=== PATIENT | male | born 1940 | race Caucasian/White ===

== ENCOUNTER 2016-12-01 22:20 | Emergency (ER) | payer MEDICARE, OTHER ==
[~2016-12-01] VITALS: Ht 172.7 cm; Wt 63.6 kg
[2016-12-01] MEDS ORDERED: FINA5TAB41 PO (22:43)
[2016-12-01] MEDS ORDERED: OXYB5 PO (22:43)
[2016-12-01] MEDS ORDERED: TOLT2TAB2 PO (22:43)
[2016-12-01] MEDS ORDERED: DSS100 PO (22:43)
[2016-12-01] MEDS ORDERED: TRAZ-147 PO (22:43)
[2016-12-01] MEDS ORDERED: TAMS0.4C32 PO (22:43)
[2016-12-01] MEDS ORDERED: METH1T PO (22:43)
[2016-12-01 23:24] LABS: BASOPHILS % (AUTO) 0.5 % (0.0-2.0); EOSINOPHILS % (AUTO) 1.8 % (1.0-6.0); HEMATOCRIT 43.9 % (41-53); HEMOGLOBIN 14.2 g/dL (13.5-17.5); LYMPHOCYTES # (AUTO) 0.7 K/uL (1.0-4.8); LYMPHOCYTES % (AUTO) 8.1 % (22.0-44.0); MEAN CORPUSCULAR HEMOGLOBIN 28.9 pg (26.0-34.0); MEAN CORPUSCULAR HGB CONC 32.4 G/dL (31.0-37.0); MEAN CORPUSCULAR VOLUME 89 fL (80-100); MONOCYTES # (AUTO) 0.5 K/uL (0.1-1.0); MONOCYTES % (AUTO) 6.2 % (2.0-9.0); NEUTROPHILS % (AUTO) 83.4 % (40.0-70.0); PLATELET COUNT (AUTO) 287 K/uL (150-450); RED BLOOD CELL COUNT(AUTO) 4.92 MIL/uL (4.50-5.90); RED CELL DISTRIBUTION WIDTH 13.9 % (11.5-14.5); WHITE BLOOD COUNT (AUTO) 8.4 K/uL (4.5-11.0)
[2016-12-01 23:32] LABS: CALCIUM, TOTAL 8.6 mg/dL (8.8-10.5); CREATININE 1.25 mg/dL (0.60-1.30)
[2016-12-01 23:42] LABS: ALBUMIN 3.2 g/dL (3.4-5.0); BILIRUBIN,TOTAL 0.2 mg/dL (0.1-1.0); TOTAL PROTEIN, SERUM 7.4 g/dL (6.4-8.2)
[2016-12-02 01:51] VITALS: BP 119/62
== END 2016-12-02 01:54 | disposition home or self-care (01) ==
LOC: EMS 22:22
DX: J40 Bronchitis, not specified as acute or chronic (principal); R11.2 Nausea with vomiting, unspecified
CPT/HCPCS: 71020; 93005; 99285

== ENCOUNTER 2017-08-05 09:53 | Emergency (ER) | payer MEDICARE, OTHER ==
[~2017-08-05] VITALS: Ht 162.6 cm; Wt 66.3 kg
[~2017-08-05 09:53] MED LIST: BETH25TA PO; DSS100 PO; FINA5TAB41 PO; METH1T PO; MUPI1OIN5 NASAL; TAMS0.4C32 PO; TOLT2TAB2 PO; TRAZ-147 PO
[2017-08-05 12:31] LABS: BASOPHILS % (AUTO) 0.1 % (0.0-2.0); EOSINOPHILS % (AUTO) 1.2 % (1.0-6.0); HEMOGLOBIN 14.4 g/dL (13.5-17.5); LYMPHOCYTES # (AUTO) 1.4 K/uL (1.0-4.8); MEAN CORPUSCULAR HEMOGLOBIN 30.1 pg (26.0-34.0); MEAN CORPUSCULAR HGB CONC 34.2 G/dL (31.0-37.0); MEAN CORPUSCULAR VOLUME 88 fL (80-100); MONOCYTES # (AUTO) 0.7 K/uL (0.1-1.0); NEUTROPHILS # (AUTO) 6.2 K/uL (1.8-7.7); NEUTROPHILS % (AUTO) 73.7 % (40.0-70.0); PLATELET COUNT (AUTO) 323 K/uL (150-450); RED BLOOD CELL COUNT(AUTO) 4.77 MIL/uL (4.50-5.90); RED CELL DISTRIBUTION WIDTH 14.5 % (11.5-14.5); WHITE BLOOD COUNT (AUTO) 8.4 K/uL (4.5-11.0)
[2017-08-05 12:41] LABS: CALCIUM, TOTAL 8.9 mg/dL (8.8-10.5); CREATININE 1.44 mg/dL (0.60-1.30); POTASSIUM 3.6 mmol/L (3.5-5.1)
[2017-08-05 12:48] LABS: LACTIC ACID 1.7 mmol/L (0.4-2.0)
[2017-08-05 12:56] LABS: ALBUMIN 3.3 g/dL (3.4-5.0); BILIRUBIN,TOTAL 0.3 mg/dL (0.1-1.0); TOTAL PROTEIN, SERUM 8.1 g/dL (6.4-8.2)
[2017-08-05 13:43] LABS: APPEARANCE,URINE TURBID (CLEAR); GLUCOSE, URINE (UA) NEGATIVE (NEGATIVE); KETONES,URINE NEGATIVE (NEGATIVE); OCCULT BLOOD,URINE LARGE (NEGATIVE); PROTEIN,URINE SEE CONFIRM (NEGATIVE)
[2017-08-05 13:44] LABS: LEUKOCYTE ESTERASE ,URINE LARGE (NEGATIVE)
[2017-08-05 13:49] LABS: SULFOSALICYLIC ACID,URINE 1+ (Negative)
[2017-08-05 13:51] LABS: SQUAMOUS EPITHELIAL CELL,UR Few /LPF (None Seen); WBC,URINE >100 /HPF (0-5)
[2017-08-05] MEDS ORDERED: CefTRIAXone 1 GM/DEXTROSE 50 ML IV ONE (14:00)
[2017-08-05] MEDS ORDERED: SODIUM CHLORIDE 0.9% 500 ML IV ONE (14:00)
[2017-08-05 15:51] VITALS: BP 139/87
== END 2017-08-05 15:54 | disposition home or self-care (01) ==
LOC: EMS 09:54
DX: N39.0 Urinary tract infection, site not specified (principal); N28.9 Disorder of kidney and ureter, unspecified
CPT/HCPCS: 36415; 70450; 80053; 81001; 83605; 85025; 87077; 87086; 87186; 96365; 99285; J0696; J7040

== ENCOUNTER 2017-08-25 23:32 | Emergency (ER) | payer MEDICARE, OTHER ==
[~2017-08-25] VITALS: Ht 172.7 cm; Wt 137.0 kg
[2017-08-26 00:54] LABS: BASOPHILS % (AUTO) 0.3 % (0.0-2.0); EOSINOPHILS % (AUTO) 0.8 % (1.0-6.0); HEMATOCRIT 39.1 % (41-53); HEMOGLOBIN 13.3 g/dL (13.5-17.5); LYMPHOCYTES # (AUTO) 0.8 K/uL (1.0-4.8); LYMPHOCYTES % (AUTO) 9.5 % (22.0-44.0); MEAN CORPUSCULAR HEMOGLOBIN 29.8 pg (26.0-34.0); MEAN CORPUSCULAR HGB CONC 33.9 G/dL (31.0-37.0); MEAN CORPUSCULAR VOLUME 88 fL (80-100); MONOCYTES # (AUTO) 0.5 K/uL (0.1-1.0); MONOCYTES % (AUTO) 5.8 % (2.0-9.0); NEUTROPHILS # (AUTO) 6.8 K/uL (1.8-7.7); NEUTROPHILS % (AUTO) 83.6 % (40.0-70.0); PLATELET COUNT (AUTO) 348 K/uL (150-450); RED BLOOD CELL COUNT(AUTO) 4.46 MIL/uL (4.50-5.90); RED CELL DISTRIBUTION WIDTH 14.2 % (11.5-14.5); WHITE BLOOD COUNT (AUTO) 8.1 K/uL (4.5-11.0)
[2017-08-26 01:03] LABS: CALCIUM, TOTAL 8.9 mg/dL (8.8-10.5); CREATININE 1.25 mg/dL (0.60-1.30); POTASSIUM 3.5 mmol/L (3.5-5.1)
[2017-08-26 01:07] LABS: PROTHROMBIN TIME 10.2 SEC (9.4-11.6)
[2017-08-26 01:28] LABS: ALBUMIN 3.2 g/dL (3.4-5.0); BILIRUBIN,TOTAL 0.2 mg/dL (0.1-1.0); CREATINE KINASE MB 14.5 ng/mL (0-5); TOTAL PROTEIN, SERUM 7.9 g/dL (6.4-8.2)
[2017-08-26] MEDS ORDERED: ASPIRIN 325 MG TABLET PO ONE (02:00)
[2017-08-26] MEDS ORDERED: ONDANSETRON HCL 4 MG/2 ML VIAL IVP PRN (02:15)
[2017-08-26] MEDS ORDERED: ACETAMINOPHEN 325 MG TABLET PO PRN (02:15)
[2017-08-26] MEDS ORDERED: 0.9% SODIUM CHLORIDE 10 ML SYRINGE IVP PRN (02:15)
[2017-08-26] MEDS ORDERED: HEPARIN SODIUM 25000 UNITS/D5W 250 ML IV PRN (02:56)
[2017-08-26] MEDS ORDERED: HEPARIN SODIUM,PORCINE 5,000 UNITS/ML VIAL IVP PRN ×2 (03:00)
[2017-08-26] MEDS ORDERED: HEPARIN SODIUM,PORCINE 5,000 UNITS/ML VIAL IVP ONE ×2 (03:00)
[2017-08-26 03:42] LABS: BASOPHILS # (AUTO) 0.03 K/uL (0.00-0.20); BASOPHILS % (AUTO) 0.4 % (0.0-2.0); EOSINOPHILS # (AUTO) 0.14 K/uL (0.00-0.70); EOSINOPHILS % (AUTO) 1.89 % (1.0-6.0); HEMATOCRIT 38.5 % (41-53); HEMOGLOBIN 12.7 g/dL (13.5-17.5); LYMPHOCYTES # (AUTO) 1.5 K/uL (1.0-4.8); LYMPHOCYTES % (AUTO) 19.4 % (22.0-44.0); MEAN CORPUSCULAR HEMOGLOBIN 29.5 pg (26.0-34.0); MEAN CORPUSCULAR VOLUME 89 fL (80-100); MONOCYTES # (AUTO) 0.5 K/uL (0.1-1.0); MONOCYTES % (AUTO) 6.3 % (2.0-9.0); NEUTROPHILS # (AUTO) 5.5 K/uL (1.8-7.7); PLATELET COUNT (AUTO) 321 K/uL (150-450); RED BLOOD CELL COUNT(AUTO) 4.31 MIL/uL (4.50-5.90); RED CELL DISTRIBUTION WIDTH 14.1 % (11.5-14.5); WHITE BLOOD COUNT (AUTO) 7.6 K/uL (4.5-11.0)
[2017-08-26] MEDS ORDERED: METOPROLOL SUCCINATE 25 MG ER TABLET PO ONE (04:30)
[2017-08-26] MEDS ORDERED: ATORVASTATIN CALCIUM 40 MG TABLET PO ONE (04:30)
[2017-08-26] MEDS ORDERED: NITROGLYCERIN 2% (1 GM=INCH) PACKET TP SCH (08:30)
[2017-08-26] MEDS: METOPROLOL TARTRATE 25 MG TABLET PO SCH ×2 (08:30→12:00)
[2017-08-26] MEDS ORDERED: POTASSIUM CHLORIDE 20 MEQ ER TABLET PO ONE (08:45)
[2017-08-26] MEDS ORDERED: ATORVASTATIN CALCIUM 40 MG TABLET PO SCH (09:00)
[2017-08-26] MEDS ORDERED: ASPIRIN 81 MG EC TABLET PO SCH (09:00)
[2017-08-26 12:00] VITALS: BP 103/78
== END 2017-08-26 12:11 | disposition other institution (70) ==
LOC: EMS 23:34
DX: I21.4 Non-ST elevation (NSTEMI) myocardial infarction (principal); Z79.899 Other long term (current) drug therapy
CPT/HCPCS: 36415; 71010; 80053; 82550; 82553; 83880; 84484; 85025; 85610; 85730; 93005 ×2; 96365; 96366; 99291; J1644 ×2

== ENCOUNTER 2018-03-03 05:58 | Inpatient (IN) | payer MEDICARE, OTHER ==
[~2018-03-03 05:58] MED LIST changes: +ATOR40TA28 PO; +BETH25 PO; -BETH25TA PO; +CARV6 PO; +CIP250 PO; +FAMO20 PO; -METH1T PO; -MUPI1OIN5 NASAL; +NYST30CR9 TP; +TICA90TA PO; -TRAZ-147 PO; +TRAZ-220 PO
[2018-03-03 07:30] VITALS: BP 141/77
[2018-03-03 11:42] VITALS: BP 126/81
[2018-03-03] MEDS: TOLTERODINE TARTRATE 2 MG TABLET PO SCH ×2 (14:45→21:00)
[2018-03-03] MEDS ORDERED: ACETAMINOPHEN 325 MG TABLET PO PRN (14:45)
[2018-03-03] MEDS ORDERED: ONDANSETRON HCL 4 MG/2 ML VIAL IVP PRN (14:45)
[2018-03-03 15:22] LABS: BASOPHILS % (AUTO) 0.7 % (0.0-2.0); EOSINOPHILS % (AUTO) 5.7 % (1.0-6.0); HEMATOCRIT 32.7 % (41-53); HEMOGLOBIN 10.8 g/dL (13.5-17.5); MEAN CORPUSCULAR HEMOGLOBIN 25.6 pg (26.0-34.0); MEAN CORPUSCULAR HGB CONC 33.1 G/dL (31.0-37.0); MEAN CORPUSCULAR VOLUME 78 fL (80-100); MONOCYTES # (AUTO) 0.6 K/uL (0.1-1.0); MONOCYTES % (AUTO) 9.1 % (2.0-9.0); NEUTROPHILS # (AUTO) 3.8 K/uL (1.8-7.7); NEUTROPHILS % (AUTO) 55.5 % (40.0-70.0); PLATELET COUNT (AUTO) 356 K/uL (150-450); RED BLOOD CELL COUNT(AUTO) 4.22 MIL/uL (4.50-5.90); RED CELL DISTRIBUTION WIDTH 16.3 % (11.5-14.5)
[2018-03-03 15:33] LABS: PROTHROMBIN TIME 10.1 SEC (9.4-11.6)
[2018-03-03] MEDS: TICAGRELOR 90 MG TABLET PO SCH ×2 (15:37→20:10)
[2018-03-03] MEDS: PANTOPRAZOLE SODIUM 40 MG/VIAL IVP SCH (15:37)
[2018-03-03] MEDS: NYSTATIN 30 GM CREAM TP SCH ×2 (15:38→20:10)
[2018-03-03] MEDS: TAMSULOSIN HCL 0.4 MG CAPSULE PO SCH ×2 (15:38→20:10)
[2018-03-03] MEDS: FINASTERIDE 5 MG TABLET PO SCH (15:38)
[2018-03-03] MEDS: DOCUSATE SODIUM 100 MG CAPSULE PO SCH (15:38)
[2018-03-03] MEDS: CARVEDILOL 6.25 MG TABLET PO SCH ×2 (15:38→20:10)
[2018-03-03] MEDS: HEPARIN SODIUM,PORCINE 5,000 UNITS/ML VIAL SQ SCH ×2 (15:39→23:22)
[2018-03-03] MEDS: BETHANECHOL CHLORIDE 25 MG TABLET PO SCH ×2 (15:39→20:10)
[2018-03-03 15:42] LABS: ALANINE AMINOTRANSFERASE 20 U/L (12-78); ALKALINE PHOSPHATASE 164 U/L (46-116); ANION GAP 4 mmol/L (8-16); ASPARTATE AMINOTRANSFERASE 17 U/L (15-37); BILIRUBIN,TOTAL 0.2 mg/dL (0.1-1.0); CALCIUM, TOTAL 8.5 mg/dL (8.8-10.5); CARBON DIOXIDE 31 mmol/L (22-29); CHLORIDE 98 mmol/L (98-107); CREATININE 0.97 mg/dL (0.60-1.30); GLUCOSE,RANDOM 90 mg/dL (70-110); SODIUM SERUM 133 mmol/L (136-145); TOTAL PROTEIN, SERUM 7.9 g/dL (6.4-8.2); UREA NITROGEN, BLOOD 27 mg/dL (7-18)
[2018-03-03 15:44] LABS: GLOMERULAR FILTR. RATE CALC > 60 mL/min (>60)
[2018-03-03 16:27] LABS: APPEARANCE,URINE CLOUDY (CLEAR); BILIRUBIN,URINE NEGATIVE (NEGATIVE); GLUCOSE, URINE (UA) NEGATIVE (NEGATIVE); KETONES,URINE NEGATIVE (NEGATIVE); LEUKOCYTE ESTERASE ,URINE LARGE (NEGATIVE); NITRATE,URINE POSITIVE (NEGATIVE); OCCULT BLOOD,URINE TRACE (NEGATIVE); PROTEIN,URINE NEGATIVE (NEGATIVE); UROBILINOGEN,URINE 0.2 mg/dL (<=1.0)
[2018-03-03 16:46] LABS: WBC,URINE >100 /HPF (0-5)
[2018-03-03 16:47] LABS: BACTERIA,URINE Many /HPF (None Seen)
[2018-03-03 16:48] LABS: SQUAMOUS EPITHELIAL CELL,UR Few /LPF (None Seen)
[2018-03-03] MEDS ORDERED: SODIUM CHLORIDE 0.9% 500 ML IV ONE (19:41)
[2018-03-03] MEDS: TraZODone HCL 100 MG TABLET PO SCH (20:10)
[2018-03-03] MEDS: CefoTEtan DISOD 2 GM/DEXTROSE 50 ML IV SCH (20:10)
[2018-03-03] MEDS: ATORVASTATIN CALCIUM 40 MG TABLET PO SCH (20:12)
[2018-03-03 20:44] VITALS: BP 122/66
[2018-03-04 00:11] VITALS: BP 81/56
[2018-03-04] MEDS ORDERED: SODIUM CHLORIDE 0.9% 1,000 ML IV ONE (00:30)
[2018-03-04 04:12] VITALS: BP 92/54
[2018-03-04 06:30] LABS: BASOPHILS % (AUTO) 0.4 % (0.0-2.0); EOSINOPHILS % (AUTO) 1.5 % (1.0-6.0); HEMATOCRIT 30.7 % (41-53); HEMOGLOBIN 10.5 g/dL (13.5-17.5); LYMPHOCYTES # (AUTO) 1.1 K/uL (1.0-4.8); LYMPHOCYTES % (AUTO) 11.9 % (22.0-44.0); MEAN CORPUSCULAR HEMOGLOBIN 26.1 pg (26.0-34.0); MEAN CORPUSCULAR HGB CONC 34.1 G/dL (31.0-37.0); MEAN CORPUSCULAR VOLUME 77 fL (80-100); MONOCYTES # (AUTO) 0.5 K/uL (0.1-1.0); NEUTROPHILS # (AUTO) 7.8 K/uL (1.8-7.7); NEUTROPHILS % (AUTO) 81.2 % (40.0-70.0); PLATELET COUNT (AUTO) 340 K/uL (150-450); RED BLOOD CELL COUNT(AUTO) 4.01 MIL/uL (4.50-5.90)
[2018-03-04 06:42] LABS: PROTHROMBIN TIME 10.3 SEC (9.4-11.6)
[2018-03-04 07:07] VITALS: BP 91/52
[2018-03-04 07:18] LABS: ALBUMIN 2.8 g/dL (3.4-5.0); BILIRUBIN,TOTAL 0.3 mg/dL (0.1-1.0); CALCIUM, TOTAL 8.3 mg/dL (8.8-10.5); CREATININE 1.41 mg/dL (0.60-1.30); MAGNESIUM 1.8 mg/dL (1.80-2.40); POTASSIUM 4.5 mmol/L (3.5-5.1); TOTAL PROTEIN, SERUM 7.4 g/dL (6.4-8.2)
[2018-03-04] MEDS: BETHANECHOL CHLORIDE 25 MG TABLET PO SCH ×3 (07:55→19:51)
[2018-03-04] MEDS: TICAGRELOR 90 MG TABLET PO SCH ×2 (07:55→19:51)
[2018-03-04] MEDS: FINASTERIDE 5 MG TABLET PO SCH (07:55)
[2018-03-04] MEDS: DOCUSATE SODIUM 100 MG CAPSULE PO SCH (07:55)
[2018-03-04] MEDS: PANTOPRAZOLE SODIUM 40 MG/VIAL IVP SCH (07:55)
[2018-03-04] MEDS: TAMSULOSIN HCL 0.4 MG CAPSULE PO SCH ×2 (07:55→19:51)
[2018-03-04] MEDS: HEPARIN SODIUM,PORCINE 5,000 UNITS/ML VIAL SQ SCH ×2 (07:56→16:15)
[2018-03-04] MEDS: NYSTATIN 30 GM CREAM TP SCH ×2 (07:56→19:51)
[2018-03-04 08:44] LABS: BAND NEUTROPHILS % (MANUAL) 2 % (0-5); EOSINOPHILS % (MANUAL) 2 % (1-6); LYMPHOCYTES % (MANUAL) 16 % (22-44); MONOCYTES % (MANUAL) 7 % (2-9); SEGMENTED NEUTROPHILS % 73 % (40-70)
[2018-03-04 11:15] VITALS: BP 102/62
[2018-03-04] MEDS: TOLTERODINE TARTRATE 2 MG TABLET PO SCH ×2 (13:15→19:51)
[2018-03-04 15:11] VITALS: BP 110/68
[2018-03-04 19:15] VITALS: BP 144/67
[2018-03-04] MEDS ORDERED: SODIUM CHLORIDE 0.9% 500 ML IV ONE (19:46)
[2018-03-04] MEDS: TraZODone HCL 100 MG TABLET PO SCH (19:51)
[2018-03-04] MEDS: ATORVASTATIN CALCIUM 40 MG TABLET PO SCH (19:51)
[2018-03-04] MEDS: CefoTEtan DISOD 2 GM/DEXTROSE 50 ML IV SCH (19:51)
[2018-03-05 00:15] VITALS: BP 134/88
[2018-03-05 03:30] VITALS: BP 132/84
[2018-03-05 06:32] LABS: BASOPHILS % (AUTO) 0.8 % (0.0-2.0); EOSINOPHILS % (AUTO) 4.8 % (1.0-6.0); HEMATOCRIT 32.1 % (41-53); HEMOGLOBIN 10.6 g/dL (13.5-17.5); LYMPHOCYTES # (AUTO) 1.3 K/uL (1.0-4.8); LYMPHOCYTES % (AUTO) 19.4 % (22.0-44.0); MEAN CORPUSCULAR HEMOGLOBIN 25.5 pg (26.0-34.0); MEAN CORPUSCULAR HGB CONC 33.1 G/dL (31.0-37.0); MEAN CORPUSCULAR VOLUME 77 fL (80-100); MONOCYTES # (AUTO) 0.4 K/uL (0.1-1.0); MONOCYTES % (AUTO) 6.6 % (2.0-9.0); NEUTROPHILS # (AUTO) 4.5 K/uL (1.8-7.7); NEUTROPHILS % (AUTO) 68.4 % (40.0-70.0); PLATELET COUNT (AUTO) 339 K/uL (150-450); RED BLOOD CELL COUNT(AUTO) 4.17 MIL/uL (4.50-5.90); RED CELL DISTRIBUTION WIDTH 16.4 % (11.5-14.5)
[2018-03-05 06:47] LABS: CALCIUM, TOTAL 8.3 mg/dL (8.8-10.5); CREATININE 1.31 mg/dL (0.60-1.30); POTASSIUM 3.8 mmol/L (3.5-5.1)
[2018-03-05 07:08] VITALS: BP 126/67
[2018-03-05] MEDS: HEPARIN SODIUM,PORCINE 5,000 UNITS/ML VIAL SQ SCH ×4 (08:14→23:32)
[2018-03-05] MEDS: FINASTERIDE 5 MG TABLET PO SCH (08:14)
[2018-03-05] MEDS: TAMSULOSIN HCL 0.4 MG CAPSULE PO SCH ×2 (08:14→20:04)
[2018-03-05] MEDS: TICAGRELOR 90 MG TABLET PO SCH ×2 (08:14→20:04)
[2018-03-05] MEDS: BETHANECHOL CHLORIDE 25 MG TABLET PO SCH ×3 (08:14→20:04)
[2018-03-05] MEDS: PANTOPRAZOLE SODIUM 40 MG/VIAL IVP SCH (08:14)
[2018-03-05] MEDS: DOCUSATE SODIUM 100 MG CAPSULE PO SCH (08:14)
[2018-03-05] MEDS: TOLTERODINE TARTRATE 2 MG TABLET PO SCH ×2 (08:14→20:04)
[2018-03-05] MEDS: NYSTATIN 30 GM CREAM TP SCH ×2 (08:15→20:05)
[2018-03-05 11:46] VITALS: BP 137/85
[2018-03-05 16:00] VITALS: BP 115/52
[2018-03-05 19:00] VITALS: BP 119/62
[2018-03-05] MEDS: DEXTROSE 5% IV SCH (20:04)
[2018-03-05] MEDS: CEFUROXIME SODIUM IV SCH (20:04)
[2018-03-05] MEDS: TraZODone HCL 100 MG TABLET PO SCH (20:04)
[2018-03-05] MEDS: ATORVASTATIN CALCIUM 40 MG TABLET PO SCH (20:04)
[2018-03-05] MEDS: WATER IV SCH (20:04)
[2018-03-05] MEDS ORDERED: SODIUM CHLORIDE 0.9% 500 ML IV ONE (22:22)
[2018-03-05] MEDS: ZOLPIDEM TARTRATE 5 MG TABLET PO PRN (23:32)
[2018-03-06 00:21] VITALS: BP 115/59
[2018-03-06 04:05] VITALS: BP 119/60
[2018-03-06] MEDS: CEFUROXIME SODIUM IV SCH ×3 (04:19→20:41)
[2018-03-06] MEDS: DEXTROSE 5% IV SCH ×3 (04:19→20:41)
[2018-03-06] MEDS: WATER IV SCH ×3 (04:19→20:41)
[2018-03-06 07:51] VITALS: BP 112/64
[2018-03-06] MEDS: HEPARIN SODIUM,PORCINE 5,000 UNITS/ML VIAL SQ SCH ×3 (08:00→16:00)
[2018-03-06] MEDS: DOCUSATE SODIUM 100 MG CAPSULE PO SCH (08:30)
[2018-03-06] MEDS: TOLTERODINE TARTRATE 2 MG TABLET PO SCH ×2 (08:30→20:39)
[2018-03-06] MEDS: PANTOPRAZOLE SODIUM 40 MG/VIAL IVP SCH (08:30)
[2018-03-06] MEDS: TAMSULOSIN HCL 0.4 MG CAPSULE PO SCH ×2 (08:30→20:39)
[2018-03-06] MEDS: TICAGRELOR 90 MG TABLET PO SCH ×2 (08:31→20:39)
[2018-03-06] MEDS: FINASTERIDE 5 MG TABLET PO SCH (08:31)
[2018-03-06] MEDS: NYSTATIN 30 GM CREAM TP SCH ×2 (08:31→21:47)
[2018-03-06] MEDS: BETHANECHOL CHLORIDE 25 MG TABLET PO SCH ×4 (08:31→20:39)
[2018-03-06 12:00] VITALS: BP 113/63
[2018-03-06 19:50] VITALS: BP 132/58
[2018-03-06] MEDS: ATORVASTATIN CALCIUM 40 MG TABLET PO SCH (20:40)
[2018-03-06] MEDS: TraZODone HCL 100 MG TABLET PO SCH (20:40)
[2018-03-06] MEDS: ZOLPIDEM TARTRATE 5 MG TABLET PO PRN (22:03)
[2018-03-07] MEDS: DEXTROSE 5% IV SCH ×3 (04:51→20:40)
[2018-03-07] MEDS: WATER IV SCH ×3 (04:51→20:40)
[2018-03-07] MEDS: CEFUROXIME SODIUM IV SCH ×3 (04:51→20:40)
[2018-03-07 05:20] VITALS: BP 159/64
[2018-03-07 06:02] LABS: BASOPHILS % (AUTO) 0.4 % (0.0-2.0); EOSINOPHILS % (AUTO) 5.6 % (1.0-6.0); HEMATOCRIT 33.6 % (41-53); HEMOGLOBIN 11.3 g/dL (13.5-17.5); LYMPHOCYTES # (AUTO) 1.5 K/uL (1.0-4.8); LYMPHOCYTES % (AUTO) 20.6 % (22.0-44.0); MEAN CORPUSCULAR HEMOGLOBIN 25.8 pg (26.0-34.0); MEAN CORPUSCULAR HGB CONC 33.6 G/dL (31.0-37.0); MEAN CORPUSCULAR VOLUME 77 fL (80-100); MONOCYTES # (AUTO) 0.6 K/uL (0.1-1.0); MONOCYTES % (AUTO) 7.7 % (2.0-9.0); NEUTROPHILS # (AUTO) 4.8 K/uL (1.8-7.7); NEUTROPHILS % (AUTO) 65.7 % (40.0-70.0); PLATELET COUNT (AUTO) 376 K/uL (150-450); RED BLOOD CELL COUNT(AUTO) 4.36 MIL/uL (4.50-5.90); RED CELL DISTRIBUTION WIDTH 16.6 % (11.5-14.5)
[2018-03-07 06:23] LABS: ANION GAP 7 mmol/L (8-16); CALCIUM, TOTAL 8.5 mg/dL (8.8-10.5); CARBON DIOXIDE 27 mmol/L (22-29); CHLORIDE 102 mmol/L (98-107); CREATININE 1.13 mg/dL (0.60-1.30); GLUCOSE,RANDOM 96 mg/dL (70-110); POTASSIUM 3.8 mmol/L (3.5-5.1); SODIUM SERUM 136 mmol/L (136-145); UREA NITROGEN, BLOOD 24 mg/dL (7-18)
[2018-03-07 07:01] LABS: GLOMERULAR FILTR. RATE CALC > 60 mL/min (>60)
[2018-03-07] MEDS: HEPARIN SODIUM,PORCINE 5,000 UNITS/ML VIAL SQ SCH ×4 (08:01→23:57)
[2018-03-07] MEDS: PANTOPRAZOLE SODIUM 40 MG/VIAL IVP SCH (08:01)
[2018-03-07] MEDS: TAMSULOSIN HCL 0.4 MG CAPSULE PO SCH ×2 (08:02→20:41)
[2018-03-07] MEDS: DOCUSATE SODIUM 100 MG CAPSULE PO SCH (08:02)
[2018-03-07] MEDS: TOLTERODINE TARTRATE 2 MG TABLET PO SCH ×2 (08:02→20:41)
[2018-03-07] MEDS: TICAGRELOR 90 MG TABLET PO SCH ×2 (08:02→20:41)
[2018-03-07] MEDS: NYSTATIN 30 GM CREAM TP SCH ×2 (08:03→20:41)
[2018-03-07] MEDS: FINASTERIDE 5 MG TABLET PO SCH (08:03)
[2018-03-07] MEDS: BETHANECHOL CHLORIDE 25 MG TABLET PO SCH ×3 (08:03→20:41)
[2018-03-07 08:05] VITALS: BP 109/49
[2018-03-07 11:33] VITALS: BP 118/53
[2018-03-07] MEDS ORDERED: SODIUM CHLORIDE 0.9% 250 ML IV ONE (12:37)
[2018-03-07 15:43] VITALS: BP 126/60
[2018-03-07 19:46] VITALS: BP 118/59
[2018-03-07] MEDS: ATORVASTATIN CALCIUM 40 MG TABLET PO SCH (20:41)
[2018-03-07] MEDS: TraZODone HCL 100 MG TABLET PO SCH (20:41)
[2018-03-08 00:04] VITALS: BP 129/69
[2018-03-08 04:13] VITALS: BP 130/59
[2018-03-08] MEDS: WATER IV SCH ×2 (04:32→13:41)
[2018-03-08] MEDS: CEFUROXIME SODIUM IV SCH ×2 (04:32→13:41)
[2018-03-08] MEDS: DEXTROSE 5% IV SCH ×2 (04:32→13:41)
[2018-03-08 07:45] VITALS: BP 148/64
[2018-03-08] MEDS: HEPARIN SODIUM,PORCINE 5,000 UNITS/ML VIAL SQ SCH ×3 (08:00→15:25)
[2018-03-08] MEDS: TICAGRELOR 90 MG TABLET PO SCH (08:19)
[2018-03-08] MEDS: PANTOPRAZOLE SODIUM 40 MG/VIAL IVP SCH (08:19)
[2018-03-08] MEDS: FINASTERIDE 5 MG TABLET PO SCH (08:19)
[2018-03-08] MEDS: TAMSULOSIN HCL 0.4 MG CAPSULE PO SCH (08:19)
[2018-03-08] MEDS: BETHANECHOL CHLORIDE 25 MG TABLET PO SCH ×2 (08:19→15:25)
[2018-03-08] MEDS: DOCUSATE SODIUM 100 MG CAPSULE PO SCH ×2 (08:20→09:00)
[2018-03-08] MEDS: TOLTERODINE TARTRATE 2 MG TABLET PO SCH (08:22)
[2018-03-08] MEDS: NYSTATIN 30 GM CREAM TP SCH (08:26)
[2018-03-08 11:39] VITALS: BP 127/78
[2018-03-08] MEDS ORDERED: CEFU250T58 PO (11:58)
[2018-03-08 15:37] VITALS: BP 132/69
== END 2018-03-08 19:15 | disposition home or self-care (01) | DRG 690 ==
LOC: 6N 06:33
PROVIDERS: ADMIT Internal Medicine; ATTEND Internal Medicine
PROC: 05H633Z Insertion of Infusion Device into Left Subclavian Vein, Percutaneous Approach (ICD-10-PCS; principal; 2018-03-07)
PROC: B547ZZA Ultrasonography of Left Subclavian Vein, Guidance (ICD-10-PCS; 2018-03-07)
DX: N39.0 Urinary tract infection, site not specified (principal); N13.30 Unspecified hydronephrosis; Z16.24 Resistance to multiple antibiotics; M81.0 Age-related osteoporosis without current pathological fracture; B96.20 Unspecified Escherichia coli [E. coli] as the cause of diseases classified elsewhere; H91.90 Unspecified hearing loss, unspecified ear; I25.10 Atherosclerotic heart disease of native coronary artery without angina pectoris; N40.0 Benign prostatic hyperplasia without lower urinary tract symptoms; Z87.440 Personal history of urinary (tract) infections
CPT/HCPCS: 36245; 36569; 76770; 76937; 83735; 85007; 87086; C9113; J0697; J1644; J3490; J7040; J7050; J7060

== ENCOUNTER 2018-08-30 11:04 | Inpatient (IN) | payer MEDICARE, OTHER ==
[~2018-08-30] VITALS: Ht 167.6 cm; Wt 57.3 kg
[~2018-08-30 11:04] MED LIST changes: +CEFU250T58 PO; -CIP250 PO
[2018-08-30 12:00] LABS: BASOPHILS % (AUTO) 0.4 % (0.0-2.0); EOSINOPHILS % (AUTO) 0.6 % (1.0-6.0); HEMATOCRIT 40.3 % (41-53); HEMOGLOBIN 13.6 g/dL (13.5-17.5); LYMPHOCYTES # (AUTO) 0.8 K/uL (1.0-4.8); LYMPHOCYTES % (AUTO) 8.8 % (22.0-44.0); MEAN CORPUSCULAR HEMOGLOBIN 27.4 pg (26.0-34.0); MEAN CORPUSCULAR HGB CONC 33.8 G/dL (31.0-37.0); MEAN CORPUSCULAR VOLUME 81 fL (80-100); MONOCYTES # (AUTO) 0.6 K/uL (0.1-1.0); MONOCYTES % (AUTO) 6.6 % (2.0-9.0); NEUTROPHILS % (AUTO) 83.6 % (40.0-70.0); PLATELET COUNT (AUTO) 441 K/uL (150-450); RED BLOOD CELL COUNT(AUTO) 4.96 MIL/uL (4.50-5.90); RED CELL DISTRIBUTION WIDTH 15.9 % (11.5-14.5)
[2018-08-30 12:13] LABS: PROTHROMBIN TIME 10.4 SEC (9.4-11.6)
[2018-08-30 12:17] LABS: CALCIUM, TOTAL 9.4 mg/dL (8.8-10.5); CREATININE 1.35 mg/dL (0.60-1.30); POTASSIUM 3.5 mmol/L (3.5-5.1)
[2018-08-30 12:24] LABS: ALBUMIN 3.1 g/dL (3.4-5.0); BILIRUBIN,TOTAL 0.3 mg/dL (0.1-1.0); TOTAL PROTEIN, SERUM 8.5 g/dL (6.4-8.2)
[2018-08-30] MEDS ORDERED: TraMADol HCL 50 MG TABLET PO ONE (12:30)
[2018-08-30] MEDS ORDERED: SODIUM CHLORIDE 0.9% 500 ML IV ONE (12:30)
[2018-08-30] MEDS ORDERED: IBUPROFEN 600 MG TABLET PO ONE (15:30)
[2018-08-30 17:27] LABS: APPEARANCE,URINE TURBID (CLEAR); BILIRUBIN,URINE NEGATIVE (NEGATIVE); GLUCOSE, URINE (UA) NEGATIVE (NEGATIVE); KETONES,URINE NEGATIVE (NEGATIVE); LEUKOCYTE ESTERASE ,URINE LARGE (NEGATIVE); NITRATE,URINE POSITIVE (NEGATIVE); OCCULT BLOOD,URINE LARGE (NEGATIVE); PH,URINE 8.5 (5.0-8.0); PROTEIN,URINE SEE CONFIRM (NEGATIVE); UROBILINOGEN,URINE 0.2 mg/dL (<=1.0)
[2018-08-30 17:34] LABS: SULFOSALICYLIC ACID,URINE 4+ (Negative)
[2018-08-30 17:35] LABS: BACTERIA,URINE Many /HPF (None Seen); WBC,URINE 51-100 /HPF (0-5)
[2018-08-30 17:36] LABS: SQUAMOUS EPITHELIAL CELL,UR Few /LPF (None Seen)
[2018-08-30] MEDS ORDERED: CefTRIAXone 1 GM/DEXTROSE 50 ML IV ONE (17:45)
[2018-08-30] MEDS ORDERED: ACETAMINOPHEN 325 MG TABLET PO PRN (19:30)
[2018-08-30] MEDS ORDERED: ONDANSETRON HCL 4 MG/2 ML VIAL IVP PRN (19:30)
[2018-08-30] MEDS ORDERED: 0.9% SODIUM CHLORIDE 10 ML SYRINGE IVP PRN (19:30)
[2018-08-30 20:10] VITALS: BP 123/70
[2018-08-31 00:05] VITALS: BP 124/56
[2018-08-31 04:15] VITALS: BP 136/83
[2018-08-31 07:01] LABS: BASOPHILS % (AUTO) 0.5 % (0.0-2.0); EOSINOPHILS % (AUTO) 3.2 % (1.0-6.0); HEMATOCRIT 35.3 % (41-53); LYMPHOCYTES # (AUTO) 1.2 K/uL (1.0-4.8); MEAN CORPUSCULAR HEMOGLOBIN 27.8 pg (26.0-34.0); MEAN CORPUSCULAR HGB CONC 34.1 G/dL (31.0-37.0); MEAN CORPUSCULAR VOLUME 82 fL (80-100); MONOCYTES # (AUTO) 0.5 K/uL (0.1-1.0); MONOCYTES % (AUTO) 6.9 % (2.0-9.0); NEUTROPHILS # (AUTO) 5.9 K/uL (1.8-7.7); NEUTROPHILS % (AUTO) 74.4 % (40.0-70.0); PLATELET COUNT (AUTO) 364 K/uL (150-450); RED BLOOD CELL COUNT(AUTO) 4.33 MIL/uL (4.50-5.90); RED CELL DISTRIBUTION WIDTH 15.9 % (11.5-14.5)
[2018-08-31 07:21] LABS: ALBUMIN 2.7 g/dL (3.4-5.0); BILIRUBIN,TOTAL 0.2 mg/dL (0.1-1.0); CALCIUM, TOTAL 8.9 mg/dL (8.8-10.5); CREATININE 1.35 mg/dL (0.60-1.30); TOTAL PROTEIN, SERUM 7.2 g/dL (6.4-8.2)
[2018-08-31 08:03] VITALS: BP 145/78
[2018-08-31] MEDS ORDERED: POTASSIUM CHLORIDE 20 MEQ ER TABLET PO PRN (11:00)
[2018-08-31] MEDS ORDERED: ZOLPIDEM TARTRATE 5 MG TABLET PO PRN (11:00)
[2018-08-31] MEDS ORDERED: MAGNESIUM SULFATE 2 GM/WATER 50 ML IV PRN (11:00)
[2018-08-31] MEDS ORDERED: ONDANSETRON HCL 4 MG/2 ML VIAL IVP PRN (11:00)
[2018-08-31] MEDS ORDERED: POTASSIUM CHL 10 MEQ/WATER 50 ML IV PRN (11:00)
[2018-08-31] MEDS ORDERED: MAGNESIUM SULFATE 4 GM/WATER 100 ML IV PRN (11:00)
[2018-08-31] MEDS ORDERED: 0.9% SODIUM CHLORIDE 10 ML SYRINGE IVP PRN (11:00)
[2018-08-31] MEDS ORDERED: MAGNESIUM OXIDE 400 MG TABLET PO PRN (11:00)
[2018-08-31 11:39] VITALS: BP 120/66
[2018-08-31] MEDS: FINASTERIDE 5 MG TABLET PO SCH (12:29)
[2018-08-31] MEDS: TAMSULOSIN HCL 0.4 MG CAPSULE PO SCH ×2 (12:29→20:04)
[2018-08-31] MEDS: TOLTERODINE TARTRATE 2 MG TABLET PO SCH ×2 (12:29→20:04)
[2018-08-31] MEDS: TICAGRELOR 90 MG TABLET PO SCH ×2 (12:29→20:04)
[2018-08-31] MEDS: PANTOPRAZOLE SODIUM 40 MG/VIAL IVP SCH (12:29)
[2018-08-31] MEDS: CARVEDILOL 6.25 MG TABLET PO SCH ×2 (12:29→20:04)
[2018-08-31] MEDS: DOCUSATE SODIUM 100 MG CAPSULE PO SCH ×2 (12:30→20:04)
[2018-08-31] MEDS: NYSTATIN 30 GM CREAM TP SCH ×2 (12:30→20:04)
[2018-08-31] MEDS: BETHANECHOL CHLORIDE 25 MG TABLET PO SCH ×2 (16:00→20:04)
[2018-08-31 16:25] VITALS: BP 107/65
[2018-08-31] MEDS ORDERED: SODIUM CHLORIDE 0.9% 250 ML IV ONE (16:49)
[2018-08-31] MEDS ORDERED: CefTRIAXone 1 GM/DEXTROSE 50 ML IV SCH (18:00)
[2018-08-31 19:40] VITALS: BP 116/64
[2018-08-31] MEDS: TraZODone HCL 100 MG TABLET PO SCH (20:04)
[2018-08-31] MEDS: ATORVASTATIN CALCIUM 40 MG TABLET PO SCH (20:04)
[2018-09-01] VITALS (7 sets, daily range): BP systolic 101–122; BP diastolic 55–64
[2018-09-01 05:53] LABS: BASOPHILS % (AUTO) 0.6 % (0.0-2.0); EOSINOPHILS % (AUTO) 3.5 % (1.0-6.0); HEMATOCRIT 35.2 % (41-53); HEMOGLOBIN 12.3 g/dL (13.5-17.5); LYMPHOCYTES # (AUTO) 1.3 K/uL (1.0-4.8); LYMPHOCYTES % (AUTO) 18.9 % (22.0-44.0); MEAN CORPUSCULAR HEMOGLOBIN 28.9 pg (26.0-34.0); MEAN CORPUSCULAR HGB CONC 34.9 G/dL (31.0-37.0); MEAN CORPUSCULAR VOLUME 83 fL (80-100); MONOCYTES # (AUTO) 0.5 K/uL (0.1-1.0); MONOCYTES % (AUTO) 7.7 % (2.0-9.0); NEUTROPHILS # (AUTO) 4.7 K/uL (1.8-7.7); NEUTROPHILS % (AUTO) 69.3 % (40.0-70.0); PLATELET COUNT (AUTO) 350 K/uL (150-450); RED BLOOD CELL COUNT(AUTO) 4.25 MIL/uL (4.50-5.90); RED CELL DISTRIBUTION WIDTH 15.7 % (11.5-14.5)
[2018-09-01 06:02] LABS: ALBUMIN 2.4 g/dL (3.4-5.0); CALCIUM, TOTAL 8.7 mg/dL (8.8-10.5); CREATININE 1.22 mg/dL (0.60-1.30); MAGNESIUM 1.8 mg/dL (1.80-2.40); POTASSIUM 4.1 mmol/L (3.5-5.1)
[2018-09-01] MEDS: FINASTERIDE 5 MG TABLET PO SCH (08:27)
[2018-09-01] MEDS: ENOXAPARIN SODIUM 40 MG/0.4 ML PF SYRINGE SQ SCH (08:27)
[2018-09-01] MEDS: CARVEDILOL 6.25 MG TABLET PO SCH ×2 (08:27→19:55)
[2018-09-01] MEDS: TAMSULOSIN HCL 0.4 MG CAPSULE PO SCH ×2 (08:27→19:55)
[2018-09-01] MEDS: TOLTERODINE TARTRATE 2 MG TABLET PO SCH ×2 (08:27→19:55)
[2018-09-01] MEDS: DOCUSATE SODIUM 100 MG CAPSULE PO SCH ×2 (08:27→19:55)
[2018-09-01] MEDS: NYSTATIN 30 GM CREAM TP SCH ×2 (08:28→19:57)
[2018-09-01] MEDS: BETHANECHOL CHLORIDE 25 MG TABLET PO SCH ×3 (08:28→19:56)
[2018-09-01] MEDS: TICAGRELOR 90 MG TABLET PO SCH ×2 (08:28→19:55)
[2018-09-01] MEDS: PANTOPRAZOLE SODIUM 40 MG/VIAL IVP SCH (08:30)
[2018-09-01] MEDS ORDERED: SULFAMETHOX/TRIMETH DS 800-160 MG/TABLET PO SCH (11:30)
[2018-09-01] MEDS: AMPICILLIN SODIUM/SULBACTAM NA 3 GM in SODIUM CHLORIDE 0.9% 100 ML IV SCH (17:07)
[2018-09-01] MEDS: TraZODone HCL 100 MG TABLET PO SCH (19:55)
[2018-09-01] MEDS: ATORVASTATIN CALCIUM 40 MG TABLET PO SCH (19:56)
[2018-09-02] MEDS: AMPICILLIN SODIUM/SULBACTAM NA 3 GM in SODIUM CHLORIDE 0.9% 100 ML IV SCH ×6 (01:10→23:40)
[2018-09-02 04:30] VITALS: BP 111/64
[2018-09-02 06:56] LABS: BASOPHILS % (AUTO) 0.6 % (0.0-2.0); EOSINOPHILS % (AUTO) 4.1 % (1.0-6.0); HEMATOCRIT 35.9 % (41-53); HEMOGLOBIN 11.9 g/dL (13.5-17.5); LYMPHOCYTES # (AUTO) 1.2 K/uL (1.0-4.8); LYMPHOCYTES % (AUTO) 18.3 % (22.0-44.0); MEAN CORPUSCULAR HEMOGLOBIN 27.6 pg (26.0-34.0); MEAN CORPUSCULAR HGB CONC 33.1 G/dL (31.0-37.0); MEAN CORPUSCULAR VOLUME 83 fL (80-100); MONOCYTES # (AUTO) 0.5 K/uL (0.1-1.0); MONOCYTES % (AUTO) 7.2 % (2.0-9.0); NEUTROPHILS # (AUTO) 4.8 K/uL (1.8-7.7); NEUTROPHILS % (AUTO) 69.8 % (40.0-70.0); PLATELET COUNT (AUTO) 340 K/uL (150-450)
[2018-09-02 07:04] LABS: CALCIUM, TOTAL 8.5 mg/dL (8.8-10.5); CREATININE 1.17 mg/dL (0.60-1.30); MAGNESIUM 1.8 mg/dL (1.80-2.40)
[2018-09-02 08:08] VITALS: BP 118/64
[2018-09-02] MEDS: PANTOPRAZOLE SODIUM 40 MG/VIAL IVP SCH (08:37)
[2018-09-02] MEDS: TICAGRELOR 90 MG TABLET PO SCH ×2 (08:38→20:15)
[2018-09-02] MEDS: DOCUSATE SODIUM 100 MG CAPSULE PO SCH ×2 (08:38→20:14)
[2018-09-02] MEDS: CARVEDILOL 6.25 MG TABLET PO SCH ×2 (08:38→20:14)
[2018-09-02] MEDS: FINASTERIDE 5 MG TABLET PO SCH (08:39)
[2018-09-02] MEDS: BETHANECHOL CHLORIDE 25 MG TABLET PO SCH ×3 (08:39→20:14)
[2018-09-02] MEDS: TAMSULOSIN HCL 0.4 MG CAPSULE PO SCH ×2 (08:39→20:15)
[2018-09-02] MEDS: TOLTERODINE TARTRATE 2 MG TABLET PO SCH ×2 (08:39→20:14)
[2018-09-02] MEDS: NYSTATIN 30 GM CREAM TP SCH ×2 (08:41→20:15)
[2018-09-02] MEDS: ENOXAPARIN SODIUM 40 MG/0.4 ML PF SYRINGE SQ SCH (08:41)
[2018-09-02 11:15] VITALS: BP 127/73
[2018-09-02 15:30] VITALS: BP 125/76
[2018-09-02 20:00] VITALS: BP 120/64
[2018-09-02] MEDS: TraZODone HCL 100 MG TABLET PO SCH (20:14)
[2018-09-02] MEDS: ATORVASTATIN CALCIUM 40 MG TABLET PO SCH (20:14)
[2018-09-03] VITALS: BP 111/65
[2018-09-03 04:00] VITALS: BP 110/58
[2018-09-03] MEDS ORDERED: SODIUM CHLORIDE 0.9% 500 ML IV ONE (05:09)
[2018-09-03] MEDS: AMPICILLIN SODIUM/SULBACTAM NA 3 GM in SODIUM CHLORIDE 0.9% 100 ML IV SCH ×2 (05:23→12:25)
[2018-09-03 07:30] VITALS: BP 128/63
[2018-09-03] MEDS: ENOXAPARIN SODIUM 40 MG/0.4 ML PF SYRINGE SQ SCH (08:10)
[2018-09-03] MEDS: BETHANECHOL CHLORIDE 25 MG TABLET PO SCH ×3 (08:10→20:31)
[2018-09-03] MEDS: DOCUSATE SODIUM 100 MG CAPSULE PO SCH ×2 (08:10→21:00)
[2018-09-03] MEDS: TAMSULOSIN HCL 0.4 MG CAPSULE PO SCH ×2 (08:10→20:30)
[2018-09-03] MEDS: TICAGRELOR 90 MG TABLET PO SCH ×2 (08:10→20:30)
[2018-09-03] MEDS: PANTOPRAZOLE SODIUM 40 MG/VIAL IVP SCH (08:10)
[2018-09-03] MEDS: CARVEDILOL 6.25 MG TABLET PO SCH ×2 (08:10→20:30)
[2018-09-03] MEDS: FINASTERIDE 5 MG TABLET PO SCH (08:11)
[2018-09-03] MEDS: NYSTATIN 30 GM CREAM TP SCH ×2 (08:11→20:32)
[2018-09-03] MEDS: TOLTERODINE TARTRATE 2 MG TABLET PO SCH ×2 (08:11→20:31)
[2018-09-03 11:57] VITALS: BP 119/62
[2018-09-03 15:23] VITALS: BP 120/75
[2018-09-03 19:53] VITALS: BP 115/54
[2018-09-03] MEDS: ATORVASTATIN CALCIUM 40 MG TABLET PO SCH (20:30)
[2018-09-03] MEDS: SULFAMETHOX/TRIMETH DS 800-160 MG/TABLET PO SCH (20:30)
[2018-09-03] MEDS: TraZODone HCL 100 MG TABLET PO SCH (20:31)
[2018-09-04] VITALS: BP 112/62
[2018-09-04 04:48] VITALS: BP 127/96
[2018-09-04 06:49] LABS: BASOPHILS % (AUTO) 0.4 % (0.0-2.0); EOSINOPHILS % (AUTO) 3.6 % (1.0-6.0); HEMATOCRIT 34.8 % (41-53); HEMOGLOBIN 11.9 g/dL (13.5-17.5); LYMPHOCYTES # (AUTO) 1.1 K/uL (1.0-4.8); LYMPHOCYTES % (AUTO) 13.8 % (22.0-44.0); MEAN CORPUSCULAR HEMOGLOBIN 28.1 pg (26.0-34.0); MEAN CORPUSCULAR HGB CONC 34.3 G/dL (31.0-37.0); MEAN CORPUSCULAR VOLUME 82 fL (80-100); MONOCYTES # (AUTO) 0.6 K/uL (0.1-1.0); MONOCYTES % (AUTO) 7.3 % (2.0-9.0); NEUTROPHILS # (AUTO) 5.9 K/uL (1.8-7.7); NEUTROPHILS % (AUTO) 74.9 % (40.0-70.0); PLATELET COUNT (AUTO) 322 K/uL (150-450); RED BLOOD CELL COUNT(AUTO) 4.26 MIL/uL (4.50-5.90); RED CELL DISTRIBUTION WIDTH 15.9 % (11.5-14.5)
[2018-09-04 07:32] LABS: ALANINE AMINOTRANSFERASE 43 U/L (12-78); ALBUMIN 2.6 g/dL (3.4-5.0); ALKALINE PHOSPHATASE 159 U/L (46-116); ANION GAP 8 mmol/L (8-16); ASPARTATE AMINOTRANSFERASE 45 U/L (15-37); BILIRUBIN,TOTAL 0.2 mg/dL (0.1-1.0); CALCIUM, TOTAL 8.4 mg/dL (8.8-10.5); CARBON DIOXIDE 23 mmol/L (22-29); CHLORIDE 107 mmol/L (98-107); CREATININE 1.06 mg/dL (0.60-1.30); GLUCOSE,RANDOM 83 mg/dL (70-110); POTASSIUM 3.8 mmol/L (3.5-5.1); SODIUM SERUM 138 mmol/L (136-145); UREA NITROGEN, BLOOD 25 mg/dL (7-18)
[2018-09-04 07:34] LABS: GLOMERULAR FILTR. RATE CALC > 60 mL/min (>60)
[2018-09-04 08:00] VITALS: BP 131/79
[2018-09-04] MEDS: DOCUSATE SODIUM 100 MG CAPSULE PO SCH ×3 (09:00→20:23)
[2018-09-04] MEDS: TOLTERODINE TARTRATE 2 MG TABLET PO SCH ×2 (09:12→20:22)
[2018-09-04] MEDS: TICAGRELOR 90 MG TABLET PO SCH ×2 (09:12→20:23)
[2018-09-04] MEDS: CARVEDILOL 6.25 MG TABLET PO SCH ×2 (09:12→20:23)
[2018-09-04] MEDS: SULFAMETHOX/TRIMETH DS 800-160 MG/TABLET PO SCH ×2 (09:12→20:23)
[2018-09-04] MEDS: ENOXAPARIN SODIUM 40 MG/0.4 ML PF SYRINGE SQ SCH (09:12)
[2018-09-04] MEDS: TAMSULOSIN HCL 0.4 MG CAPSULE PO SCH ×2 (09:12→20:22)
[2018-09-04] MEDS: BETHANECHOL CHLORIDE 25 MG TABLET PO SCH ×3 (09:12→20:23)
[2018-09-04] MEDS: FINASTERIDE 5 MG TABLET PO SCH (09:12)
[2018-09-04] MEDS: PANTOPRAZOLE SODIUM 40 MG/VIAL IVP SCH (09:12)
[2018-09-04] MEDS: NYSTATIN 30 GM CREAM TP SCH (09:13)
[2018-09-04 10:53] VITALS: BP 131/70
[2018-09-04 16:06] VITALS: BP 118/63
[2018-09-04 19:45] VITALS: BP 115/64
[2018-09-04] MEDS: ATORVASTATIN CALCIUM 40 MG TABLET PO SCH (20:22)
[2018-09-04] MEDS: TraZODone HCL 100 MG TABLET PO SCH (20:22)
== END 2018-09-04 20:30 | DRG 690 ==
LOC: EMS 11:05 → 6N 19:30
PROVIDERS: ADMIT Internal Medicine; ATTEND Internal Medicine
DX: N39.0 Urinary tract infection, site not specified (principal); G93.40 Encephalopathy, unspecified; N49.2 Inflammatory disorders of scrotum; I25.10 Atherosclerotic heart disease of native coronary artery without angina pectoris; N40.0 Benign prostatic hyperplasia without lower urinary tract symptoms; K43.9 Ventral hernia without obstruction or gangrene; M81.0 Age-related osteoporosis without current pathological fracture; G47.00 Insomnia, unspecified; B96.4 Proteus (mirabilis) (morganii) as the cause of diseases classified elsewhere; B96.89 Other specified bacterial agents as the cause of diseases classified elsewhere; F03.90 Unspecified dementia, unspecified severity, without behavioral disturbance, psychotic disturbance, mood disturbance, and anxiety; H91.90 Unspecified hearing loss, unspecified ear; N50.3 Cyst of epididymis; N50.89 Other specified disorders of the male genital organs; Z87.440 Personal history of urinary (tract) infections
CPT/HCPCS: 51701; 76870; 83735; 87086; 93005; 97116; 97161; 97165; 97530; 97535; C9113; G0378; J0295; J0696; J1650; J7040; J7050